=== PATIENT | female | born 1980 | race Caucasian/White ===

== ENCOUNTER 2020-04-08 16:20 | Emergency (ER) | payer OTHER ==
[2020-04-08] MEDS ORDERED: BAMLANIVIMAB 700 MG in SODIUM CHLORIDE 180 ML IVPB ONE (17:03)
[2020-04-08 17:16] VITALS: BMI 27.4
[2020-04-08 18:20] LABS: HEMATOCRIT 41.3 % (32.4-45.2); HEMOGLOBIN 13.6 GM/dL (10.7-15.3); MCH 27.7 pg (25.7-33.7); MCHC 32.9 g/dl (32.0-36.0); MEAN CELL VOLUME 84.4 fl (80-96); MEAN PLT VOLUME 8.9 fl (7.5-11.1); PLATELET COUNT 200 K/MM3 (134-434); RBC 4.89 M/mm3 (3.60-5.2); RDW 13.5 % (11.6-15.6)
[2020-04-08 18:39] LABS: POTASSIUM 5.4 mmol/L (3.5-5.1)
[2020-04-08 18:40] LABS: BLOOD UREA NITROGEN 14.2 mg/dL (7-18); CALCIUM 9.1 mg/dL (8.5-10.1)
[2020-04-08 18:44] LABS: CREATININE 0.8 mg/dL (0.55-1.3)
[2020-04-08 20:31] VITALS: BP 122/89; PULSE 105; TEMP 99
== END 2020-04-08 20:10 | disposition home or self-care (01) ==
LOC: JER 16:20
DX: U07.1 COVID-19 (principal)
CPT/HCPCS: 36415; 80048; 85027; 99284-25; M0239; Q0239